=== PATIENT | female | born 1990 | race Caucasian/White ===

== ENCOUNTER 2020-09-15 07:10 | Inpatient (IN) | payer OTHER ==
[2020-09-15 08:25] VITALS: BMI 32.1
[2020-09-15] MEDS ORDERED: BUTORPHANOL TARTRATE 1 MG/ML VIAL IVPB PRN (08:41)
[2020-09-15 08:56] LABS: BASO % 0.5 % (0-2.0); EOS % 0.5 % (0-4.5); HEMATOCRIT 30.1 % (32.4-45.2); HEMOGLOBIN 10.1 GM/dL (10.7-15.3); LYMPH % 16.3 % (8-40); MCH 31.7 pg (25.7-33.7); MCHC 33.7 g/dl (32.0-36.0); MEAN CELL VOLUME 94.2 fl (80-96); MEAN PLT VOLUME 8.9 fl (7.5-11.1); MONO % 12.3 % (3.8-10.2); NEUT % 70.4 % (42.8-82.8); PLATELET COUNT 217 10^3/uL (134-434); RBC 3.19 M/mm3 (3.60-5.2); RDW 13.4 % (11.6-15.6); WHITE BLOOD COUNT 7.3 K/mm3 (4.0-10.0)
[2020-09-15 09:03] LABS: INR 0.85 (0.83-1.09); PROTHROMBIN TIME (PATIENT) 10.3 SEC (9.7-13.0)
[2020-09-15 09:06] LABS: ACTIVATED PTT 25.2 SECONDS (25.2-36.5)
[2020-09-15] MEDS ORDERED: DINOPROSTONE 10 MG VAGINAL SUPPOSITORY VG ONE (09:30)
[2020-09-15 10:20] LABS: CALCIUM 8.5 mg/dL (8.5-10.1)
[2020-09-15 10:22] LABS: BLOOD UREA NITROGEN 9.3 mg/dL (7-18)
[2020-09-15 10:24] LABS: CREATININE 0.6 mg/dL (0.55-1.3)
[2020-09-15 11:28] LABS: SYPHILIS W/ RPR CONF NON-REACTIVE (NONREACTIVE)
[2020-09-15 11:57] LABS: HIV INTERPRETATION NEGATIVE (NEGATIVE)
[2020-09-15] MEDS: ELECTROLYTE-148 SOLN 1,000 ML IV SCH ×2 (19:30→23:57)
[2020-09-15] MEDS ORDERED: OXYTOCIN 30 UNITS in 0.9% NS 30 UNIT/500 ML INFUS.BAG IVPB SCH (20:15)
[2020-09-15] MEDS ORDERED: FENTANYL/BUPIVACAINE/NS/PF - PCEA - 50 ML DISP.SYRIN EP ONE (21:34)
[2020-09-15] MEDS ORDERED: PCA PUMP NR ONE (21:35)
[2020-09-15] MEDS ORDERED: NALOXONE HCL 0.4 MG/ML VIAL IVPUSH PRN (21:56)
[2020-09-15] MEDS ORDERED: FENTANYL/BUPIVACAINE/NS/PF - PCEA - 50 ML DISP.SYRIN EP SCH (22:00)
[2020-09-16] MEDS ORDERED: OXYTOCIN 30 UNITS in 0.9% NS 30 UNIT/500 ML INFUS.BAG IVPB ONE (00:56)
[2020-09-16] MEDS ORDERED: WITCH HAZEL 50% (TUCKS) 40 PAD/JAR PAD TP PRN (01:46)
[2020-09-16] MEDS ORDERED: METHYLERGONOVINE MALEATE 0.2 MG/1 ML AMP IM PRN (01:46)
[2020-09-16] MEDS ORDERED: BENZOCAINE 28 GM HEMORRHOIDAL OINTMENT PR PRN (01:46)
[2020-09-16] MEDS ORDERED: ACETAMINOPHEN 325 MG TABLET (FP) PO PRN (01:46)
[2020-09-16] MEDS ORDERED: BENZOCAINE 20% 57 GM BOTTLE TP PRN (01:46)
[2020-09-16] MEDS ORDERED: BISACODYL 10 MG SUPP.RECT PR PRN (01:46)
[2020-09-16] MEDS ORDERED: IBUPROFEN 600 MG TABLET (FP) PO PRN (01:46)
[2020-09-16] MEDS ORDERED: OXYTOCIN 20 UNITS in 0.9% NS 20 UNIT/1,000 ML INFUS.BAG IV ONE (02:27)
[2020-09-16] MEDS ORDERED: LIDOCAINE HCL 1% PRESERVATIVE FREE - 30ML VIAL ONE (02:28)
[2020-09-16] MEDS ORDERED: OXYTOCIN 20 UNITS in 0.9% NS 20 UNIT/1,000 ML INFUS.BAG IV SCH (04:00)
[2020-09-16 04:56] LABS: CORD BASE EXCESS -4.1 mmol/L (0-2); CORD BASE EXCESS -4.3 mmol/L (0-2); CORD HCO3 22.4 mmHg (20-29); CORD HCO3 23.8 mmHg (20-29); CORD PCO2 46.2 mmHg (30-78); CORD PCO2 54.8 mmHg (30-78); CORD pH 7.256 (7.14-7.44); CORD pH 7.304 (7.14-7.44)
[2020-09-16] MEDS: ELECTROLYTE-148 SOLN 1,000 ML IV SCH (19:04)
[2020-09-17 08:45] LABS: BASO % 0.5 % (0-2.0); EOS % 0.4 % (0-4.5); HEMATOCRIT 33.1 % (32.4-45.2); LYMPH % 15.3 % (8-40); MCH 31.9 pg (25.7-33.7); MCHC 33.3 g/dl (32.0-36.0); MEAN CELL VOLUME 95.7 fl (80-96); MEAN PLT VOLUME 9.4 fl (7.5-11.1); MONO % 6.4 % (3.8-10.2); NEUT % 77.4 % (42.8-82.8); PLATELET COUNT 281 10^3/uL (134-434); RBC 3.46 M/mm3 (3.60-5.2); RDW 13.7 % (11.6-15.6); WHITE BLOOD COUNT 14.4 K/mm3 (4.0-10.0)
[2020-09-17 22:22] VITALS: PULSE 78
[2020-09-18 10:43] VITALS: BP 139/72; TEMP 98.5
== END 2020-09-18 14:45 | disposition home or self-care (01) | DRG 807 ==
LOC: JLDR 07:10 → J3W 09-16 06:01
PROVIDERS: ADMIT Obstetrics & Gynecology; ATTEND Obstetrics & Gynecology
PROC: 3E0P7VZ Introduction of Hormone into Female Reproductive, Via Natural or Artificial Opening (ICD-10-PCS; 2020-09-15)
PROC: 10E0XZZ Delivery of Products of Conception, External Approach (ICD-10-PCS; principal; 2020-09-16)
PROC: 0W8NXZZ Division of Female Perineum, External Approach (ICD-10-PCS; 2020-09-16)
DX: O66.2 Obstructed labor due to unusually large fetus (principal); Z37.0 Single live birth; O69.81X0 Labor and delivery complicated by cord around neck, without compression, not applicable or unspecified; O70.1 Second degree perineal laceration during delivery; Z3A.39 39 weeks gestation of pregnancy
CPT/HCPCS: 36415; 36600; 59409; 80048; 82803; 85025; 85610; 85730; 86780; 86850; 86900; 86901; 87389; C9803; U0003; U0005

== ENCOUNTER 2022-05-09 07:30 | Inpatient (IN) | payer OTHER ==
[2022-05-09] MEDS ORDERED: BUTORPHANOL TARTRATE 1 MG/ML VIAL IVPB PRN (07:57)
[2022-05-09] MEDS ORDERED: DINOPROSTONE 10 MG VAGINAL SUPPOSITORY VG STA (07:59)
[2022-05-09] MEDS ORDERED: AMPICILLIN - 2 GM in SODIUM CHLORIDE 100 ML IVPB ONE (08:00)
[2022-05-09 08:44] VITALS: BMI 31.8
[2022-05-09] MEDS: ELECTROLYTE-148 SOLN 1,000 ML IV SCH (09:00)
[2022-05-09] MEDS ORDERED: OXYTOCIN 30 UNITS in 0.9% NS 30 UNIT/500 ML INFUS.BAG IVPB ONE (11:12)
[2022-05-09] MEDS: OXYTOCIN 30 UNITS in 0.9% NS 30 UNIT/500 ML INFUS.BAG IVPB SCH (11:20)
[2022-05-09] MEDS: AMPICILLIN - 1 GM in SODIUM CHLORIDE 100 ML IVPB SCH ×2 (12:09→16:25)
[2022-05-09 12:44] LABS: HIV INTERPRETATION NEGATIVE (NEGATIVE)
[2022-05-09] MEDS ORDERED: FENTANYL/BUPIVACAINE/NS/PF - PCEA - 50 ML DISP.SYRIN EP ONE (20:37)
[2022-05-09] MEDS ORDERED: FENTANYL/BUPIVACAINE/NS/PF - PCEA - 50 ML DISP.SYRIN EP SCH (21:30)
[2022-05-09] MEDS ORDERED: OXYTOCIN 20 UNITS in 0.9% NS 20 UNIT/1,000 ML INFUS.BAG IV ONE (23:07)
[2022-05-09] MEDS ORDERED: LIDOCAINE HCL 1% PRESERVATIVE FREE - 30ML VIAL ONE (23:08)
[2022-05-09] MEDS ORDERED: OXYTOCIN 20 UNITS in 0.9% NS 20 UNIT/1,000 ML INFUS.BAG IV SCH (23:45)
[2022-05-09] MEDS ORDERED: IBUPROFEN 600 MG TABLET (FP) PO PRN (23:47)
[2022-05-09] MEDS ORDERED: BISACODYL 10 MG SUPP.RECT RC PRN (23:47)
[2022-05-09] MEDS ORDERED: METHYLERGONOVINE MALEATE 0.2 MG/1 ML AMP IM PRN (23:47)
[2022-05-09] MEDS ORDERED: ACETAMINOPHEN 325 MG TABLET (FP) PO PRN (23:47)
[2022-05-09] MEDS ORDERED: WITCH HAZEL 50% (TUCKS) 40 PAD/JAR PAD TP PRN (23:47)
[2022-05-09] MEDS ORDERED: BENZOCAINE 20% 57 GM BOTTLE TP PRN (23:47)
[2022-05-09] MEDS ORDERED: BENZOCAINE 28 GM HEMORRHOIDAL OINTMENT TP PRN (23:47)
[2022-05-10 00:46] LABS: CORD BASE EXCESS -3.2 mmol/L (0-2); CORD HCO3 22.5 mmHg (20-29); CORD PCO2 42.7 mmHg (30-78); CORD pH 7.34 (7.14-7.44)
[2022-05-10 00:48] LABS: CORD BASE EXCESS -7.5 mmol/L (0-2); CORD HCO3 20.4 mmHg (20-29); CORD PCO2 50.4 mmHg (30-78); CORD pH 7.225 (7.14-7.44)
[2022-05-10] MEDS ORDERED: NALOXONE HCL 0.4 MG/ML VIAL IVPUSH PRN (00:50)
[2022-05-10] MEDS: AMPICILLIN - 1 GM in SODIUM CHLORIDE 100 ML IVPB SCH ×2 (02:52→02:53)
[2022-05-10 08:19] LABS: BASO % 0.1 % (0-2.0); EOS % 0.1 % (0-4.5); HEMATOCRIT 25.4 % (32.4-45.2); HEMOGLOBIN 8.8 GM/dL (10.7-15.3); LYMPH % 9.4 % (8-40); MCH 33.5 pg (25.7-33.7); MCHC 34.7 g/dl (32.0-36.0); MEAN CELL VOLUME 96.5 fl (80-96); MEAN PLT VOLUME 8.2 fl (7.5-11.1); MONO % 7.6 % (3.8-10.2); NEUT % 82.8 % (42.8-82.8); PLATELET COUNT 198 10^3/uL (134-434); RBC 2.63 M/mm3 (3.60-5.2); RDW 13.6 % (11.6-15.6); WHITE BLOOD COUNT 10.2 K/mm3 (4.0-10.0)
[2022-05-10] MEDS: FERROUS SO4 325 MG TABLET (FP) PO SCH ×3 (09:15→19:03)
[2022-05-10] MEDS: PRENATAL VITAMINS W/ FOLIC ACID TABLET (FP) PO SCH (09:15)
[2022-05-10] MEDS: OXYTOCIN 30 UNITS in 0.9% NS 30 UNIT/500 ML INFUS.BAG IVPB SCH (19:34)
[2022-05-10] MEDS: ELECTROLYTE-148 SOLN 1,000 ML IV SCH (19:34)
[2022-05-10] MEDS ORDERED: SENNOSIDES/DOCUSATE COMBO (SENNA PLUS) TABLET (UD) PO PRN (22:00)
[2022-05-10] MEDS ORDERED: oxyCODONE HCL 5 MG TABLET PO PRN (23:47)
[2022-05-11] MEDS: PRENATAL VITAMINS W/ FOLIC ACID TABLET (FP) PO SCH (09:07)
[2022-05-11] MEDS: FERROUS SO4 325 MG TABLET (FP) PO SCH ×2 (09:08→12:41)
[2022-05-11 09:18] VITALS: BP 112/69; PULSE 78; RESP 16; TEMP 98
[2022-05-11] MEDS ORDERED: PATIENT'S OWN MEDICATION (NON-FORMULARY) (Ferrous Sulfate [Iron] 325 MG Tablet) PO SCH (10:00)
[2022-05-11] MEDS ORDERED: PATIENT'S OWN MEDICATION (NON-FORMULARY) (Prenatal Vit No.124/Iron/Folic [Prenatal Vitamin PO SCH (10:00)
== END 2022-05-11 13:50 | disposition home or self-care (01) | DRG 807 ==
LOC: JLDR 07:30 → J3W 05-10 02:30
PROVIDERS: ADMIT Obstetrics & Gynecology; ATTEND Obstetrics & Gynecology
PROC: 10E0XZZ Delivery of Products of Conception, External Approach (ICD-10-PCS; principal; 2022-05-10)
PROC: 0HQ9XZZ Repair Perineum Skin, External Approach (ICD-10-PCS; 2022-05-10)
DX: O36.63X0 Maternal care for excessive fetal growth, third trimester, not applicable or unspecified (principal); O70.0 First degree perineal laceration during delivery; O99.214 Obesity complicating childbirth; Z3A.39 39 weeks gestation of pregnancy; Z37.0 Single live birth
CPT/HCPCS: 36415; 36600; 59409; 82803; 85025; 87389

== ENCOUNTER 2025-01-01 19:10 | Inpatient (IN) | payer OTHER ==
[2025-01-01 20:29] VITALS: BMI 31.5
[2025-01-01] MEDS ORDERED: DINOPROSTONE 10 MG VAGINAL SUPPOSITORY VG ONE (20:35)
[2025-01-01] MEDS ORDERED: BUTORPHANOL TARTRATE 2 MG/ML VIAL IVPB PRN (20:35)
[2025-01-01 20:58] LABS: GLUCOSE,RANDOM 70.0 mg/dL (74-106)
[2025-01-01 20:59] LABS: INR 0.96 (0.83-1.09); PROTHROMBIN TIME (PATIENT) 10.6 SEC (9.7-13.0)
[2025-01-01 21:00] LABS: CO2 21.0 mmol/L (21-32)
[2025-01-01 21:02] LABS: ACTIVATED PTT 26.8 SECONDS (25.2-36.5)
[2025-01-01 21:04] LABS: CREATININE 0.63 mg/dL (0.55-1.3)
[2025-01-01] MEDS: ELECTROLYTE-148 SOLN 1,000 ML IV SCH (21:15)
[2025-01-01] MEDS ORDERED: OXYTOCIN 30 UNITS in 0.9% NS 30 UNIT/500 ML INFUS.BAG IVPB ONE (21:22)
[2025-01-01] MEDS: OXYTOCIN 30 UNITS in 0.9% NS 30 UNIT/500 ML INFUS.BAG IVPB SCH (21:40)
[2025-01-01 22:11] LABS: ABSOLUTE IMMATURE GRANULOCYTES 0.04 x10^3/uL (0.0-0.031); BASOPHILS # 0.01 x10^3/uL (0.01-0.08); EOSINOPHIL % 0.6 % (0.7-5.8); EOSINOPHILS # 0.04 x10^3/uL (0.04-0.36); IMMATURE PLATELET FRACTION # 6.60 x10^3/uL; MCHC 33.0 g/dl (32.2-35.5); MEAN CELL VOLUME 99.3 fl (79.4-94.8); MEAN PLT VOLUME 10.4 fl (9.4-12.3); MONOCYTE # 0.95 x10^3/uL (0.24-0.86); MONOCYTE % 13.6 % (4.7-12.5); RDW 13.3 % (12.1-16.8)
[2025-01-02] MEDS ORDERED: FENTANYL/BUPIVACAINE/NS/PF - PCEA - 50 ML DISP.SYRIN EP ONE ×2 (03:51→08:27)
[2025-01-02] MEDS: FENTANYL/BUPIVACAINE/NS/PF - PCEA - 50 ML DISP.SYRIN EP SCH (04:10)
[2025-01-02] MEDS ORDERED: NALOXONE HCL 0.4 MG/ML VIAL IVPUSH PRN (06:19)
[2025-01-02] MEDS ORDERED: OXYTOCIN 20 UNITS in 0.9% NS 20 UNIT/1,000 ML INFUS.BAG IV ONE (06:51)
[2025-01-02] MEDS ORDERED: BISACODYL 10 MG SUPP.RECT RC PRN (07:29)
[2025-01-02] MEDS ORDERED: BENZOCAINE 28 GM HEMORRHOIDAL OINTMENT TP PRN (07:29)
[2025-01-02] MEDS ORDERED: ACETAMINOPHEN 325 MG TABLET (FP) PO PRN (07:29)
[2025-01-02] MEDS ORDERED: METHYLERGONOVINE MALEATE 0.2 MG/1 ML AMP IM PRN (07:29)
[2025-01-02] MEDS: OXYTOCIN 20 UNITS in 0.9% NS 20 UNIT/1,000 ML INFUS.BAG IV SCH (09:32)
[2025-01-02] MEDS ORDERED: PATIENT'S OWN MEDICATION (NON-FORMULARY) (Ferrous Sulfate [Iron] 325 MG Tablet) PO SCH (10:00)
[2025-01-02 10:19] LABS: CORD BASE EXCESS 0.2 mmol/L (0-2); CORD HCO3 23.8 mmHg (20-29); CORD PCO2 35.7 mmHg (30-78); CORD pH 7.441 (7.14-7.44)
[2025-01-02] MEDS: FERROUS SO4 325 MG TABLET (FP) PO SCH ×2 (13:30→19:58)
[2025-01-02] MEDS: BENZOCAINE 20% 57 GM BOTTLE TP PRN (19:48)
[2025-01-02] MEDS: WITCH HAZEL 50% (TUCKS) 40 PAD/JAR PAD TP PRN (19:49)
[2025-01-03 08:47] LABS: MCHC 33.2 g/dl (32.2-35.5); MEAN CELL VOLUME 100.0 fl (79.4-94.8); MEAN PLT VOLUME 10.6 fl (9.4-12.3); RDW 13.5 % (12.1-16.8)
[2025-01-03] MEDS: PRENATAL VITAMINS W/ FOLIC ACID TABLET (FP) PO SCH (09:41)
[2025-01-03] MEDS: PROMETHAZINE HCL 25 MG/1 ML VIAL IVPB ONE (20:10)
[2025-01-03] MEDS: DINOPROSTONE 10 MG VAGINAL SUPPOSITORY VG ONE (20:10)
[2025-01-03] MEDS: SENNOSIDES/DOCUSATE COMBO (SENNA PLUS) TABLET (UD) PO PRN (21:40)
[2025-01-04] MEDS: IBUPROFEN 600 MG TABLET (FP) PO PRN (08:13)
[2025-01-04 09:55] VITALS: BP 103/66; PULSE 69; RESP 18; TEMP 98.2
== END 2025-01-04 16:05 | disposition home or self-care (01) | DRG 807 ==
LOC: JLDR 19:10 → J3W 01-02 13:36
PROVIDERS: ADMIT Obstetrics & Gynecology; ATTEND Obstetrics & Gynecology
PROC: 10E0XZZ Delivery of Products of Conception, External Approach (ICD-10-PCS; principal; 2025-01-02)
PROC: 0HQ9XZZ Repair Perineum Skin, External Approach (ICD-10-PCS; 2025-01-02)
PROC: 0W8NXZZ Division of Female Perineum, External Approach (ICD-10-PCS; 2025-01-02)
DX: O70.0 First degree perineal laceration during delivery (principal); O99.213 Obesity complicating pregnancy, third trimester; Z3A.39 39 weeks gestation of pregnancy; Z37.0 Single live birth
CPT/HCPCS: 36415; 36600; 59409; 80048; 82803; 85025; 85610; 85730; 86780; 86850; 86900; 86901